=== PATIENT | male | born 1950 | race Caucasian/White ===

== ENCOUNTER → 2016-07-25 | Outpatient (CLI) | payer BC ==
[~2016-07-25] MED LIST: SODIUM CHLORIDE 0.9% 250 ML in EMPTY BAG 1 BAG IV PRN; SODIUM CHLORIDE 0.9% 500 ML in EMPTY BAG 1 BAG IV PRN
[2016-07-25 07:36] LABS: Basophils % (A) 1 %; CH 30.5; CHCM 32.7; Eosinophils # (A) 0.1 k/uL (0-0.7); Eosinophils % (A) 2 %; HCT 46.9 % (39.0-53.0); HDW 2.38; HGB 15.2 gm/dL (13.0-17.5); Luc # (Auto) 0.18; Luc % (Auto) 4; Lymphocytes # (A) 1.4 k/uL (1.0-4.8); Lymphocytes % (A) 27 %; MCH 30.4 pg (25.0-35.0); MCHC 32.5 g/dL (31.0-37.0); MCV 93.5 fL (80.0-100.0); Mean Platelet Volume 8.5; Monocytes # (A) 0.4 k/uL (0-1.0); Monocytes % (A) 8 %; Neutrophils % (A) 59 %; RBC 5.01 m/uL (4.30-5.90); RDW 13.2 % (11.5-15.5); WBC 5.1 k/uL (3.8-10.6); WBC (Perox) 4.99
[2016-07-25 07:44] VITALS: RESP 16; TEMP 98.3
[2016-07-25 08:19] VITALS: BP 116/72; PULSE 71
== END ==
LOC: PROCWHC3 07:18
PROVIDERS: ATTEND Family Medicine
DX: E83.119 Hemochromatosis, unspecified (principal)
CPT/HCPCS: 36415; 85025; 99195

== ENCOUNTER → 2016-10-24 | Outpatient (CLI) | payer BC ==
[2016-10-24 07:23] VITALS: RESP 20; TEMP 97.8
[2016-10-24 07:40] LABS: Basophils % (A) 0 %; CH 31.7; CHCM 34.4; Eosinophils # (A) 0.1 k/uL (0-0.7); Eosinophils % (A) 3 %; HCT 48.5 % (39.0-53.0); HGB 16.1 gm/dL (13.0-17.5); Luc # (Auto) 0.15; Luc % (Auto) 3; Lymphocytes # (A) 1.3 k/uL (1.0-4.8); Lymphocytes % (A) 27 %; MCH 30.6 pg (25.0-35.0); MCHC 33.1 g/dL (31.0-37.0); MCV 92.6 fL (80.0-100.0); Monocytes # (A) 0.5 k/uL (0-1.0); Monocytes % (A) 11 %; Neutrophils # (A) 2.7 k/uL (1.3-7.7); Neutrophils % (A) 56 %; RBC 5.24 m/uL (4.30-5.90); WBC 4.8 k/uL (3.8-10.6); WBC (Perox) 4.48
[2016-10-24 08:05] VITALS: BP 137/73; PULSE 61
== END | disposition home or self-care (01) ==
LOC: PROCWHC3 07:04
PROVIDERS: ATTEND Family Medicine
DX: E83.119 Hemochromatosis, unspecified (principal)
CPT/HCPCS: 36415; 85025; 99195

== ENCOUNTER → 2017-01-23 | Outpatient (CLI) | payer BC ==
[~2017-01-23] MED LIST changes: -SODIUM CHLORIDE 0.9% 250 ML in EMPTY BAG 1 BAG IV PRN
[2017-01-23 07:18] VITALS: PULSE 51; TEMP 97.5
[2017-01-23 07:22] LABS: Basophils % (A) 0 %; CH 31.9; CHCM 34.1; Eosinophils # (A) 0.1 k/uL (0-0.7); Eosinophils % (A) 2 %; HCT 48.3 % (39.0-53.0); HDW 2.37; HGB 16.1 gm/dL (13.0-17.5); Luc # (Auto) 0.14; Luc % (Auto) 3; Lymphocytes # (A) 1.7 k/uL (1.0-4.8); Lymphocytes % (A) 31 %; MCH 31.4 pg (25.0-35.0); MCHC 33.4 g/dL (31.0-37.0); MCV 94.1 fL (80.0-100.0); Mean Platelet Volume 7.9; Monocytes # (A) 0.6 k/uL (0-1.0); Monocytes % (A) 11 %; Neutrophils # (A) 2.9 k/uL (1.3-7.7); Neutrophils % (A) 54 %; RBC 5.14 m/uL (4.30-5.90); RDW 13.8 % (11.5-15.5); WBC 5.5 k/uL (3.8-10.6); WBC (Perox) 5.57
[2017-01-23 07:50] VITALS: BP 130/73; RESP 14
== END | disposition home or self-care (01) ==
LOC: PROCWHC3 07:02
PROVIDERS: ATTEND Family Medicine
DX: E83.119 Hemochromatosis, unspecified (principal)
CPT/HCPCS: 36415; 85025; 99195

== ENCOUNTER → 2017-04-23 | Outpatient (CLI) | payer BC ==
--- NOTE | 2017-04-23 09:51 | CTL ---
EXAMINATION TYPE: CT Low Dose Lung DATE OF EXAM ORDERED: 04/23/2017 HISTORY: Long-term tobacco use. Lung cancer screening CT DLP: [address] CTDI: 2.68 mGy Automated exposure control for dose reduction was used. SCREENING VISIT: Initial screening study COMPARISON: None TECHNIQUE: Low dose computed tomography scan was performed through the chest at 1 mm thick sections a nd reconstructed images in the coronal plane at [address] DIAGNOSTIC QUALITY: Satisfactory FINDINGS: LUNG NODULES: None. LUNGS: COPD: Severity: Mild to minimal Fibrosis: Severity: None Lymph nodes: No greater than 1 cm adenopathy is present. Other findings: No significant acute or chronic pulmonary process. BILATERAL PLEURAL SPACE: Effusion: None Calcification: None Thickening: None Pneumothorax: None HEART: Heart Size: Normal Coronary calcification: Severe but post CABG changes with mediastinal clips and sternal wires are pr esent. Pericardial effusion: None OTHER FINDINGS: Upper abdomen: Small size hiatal hernia is present. Bony thorax: Mild to moderate multilevel spurring in thoracic spine is present. Supraclavicular region: No suspicious finding is present. Other: Ascending aorta measures up to 4.1 cm in diameter on axial image 25. IMPRESSION: No suspicious nodules or masses identified. FOLLOW UP CT CHEST RECOMMENDATION: Annual low-dose lung screening CT CT LUNG RAD: 1-negative study Note is made of 4.1 cm aneurysmal change of ascending aorta. This may required annual CT surveillance . This could be used instead of low-dose lung screening CT.
== END | disposition home or self-care (01) ==
LOC: RADCTMAIN 08:18
PROVIDERS: ATTEND Family Medicine
DX: Z12.2 Encounter for screening for malignant neoplasm of respiratory organs (principal); Z87.891 Personal history of nicotine dependence

== ENCOUNTER → 2017-07-10 | Outpatient (CLI) | payer BC ==
[2017-07-10 07:25] VITALS: RESP 16; TEMP 97.7
[2017-07-10 07:35] LABS: Basophils % (A) 1 %; Eosinophils # (A) 0.1 k/uL (0-0.7); Eosinophils % (A) 2 %; HCT 46.4 % (39.0-53.0); HGB 15.2 gm/dL (13.0-17.5); Lymphocytes # (A) 1.2 k/uL (1.0-4.8); Lymphocytes % (A) 28 %; MCHC 32.9 g/dL (31.0-37.0); MCV 91.1 fL (80.0-100.0); Monocytes # (A) 0.4 k/uL (0-1.0); Monocytes % (A) 8 %; Neutrophils # (A) 2.6 k/uL (1.3-7.7); Neutrophils % (A) 58 %; Platelet Count 155 k/uL (150-450); RBC 5.09 m/uL (4.30-5.90); RDW 12.7 % (11.5-15.5); WBC 4.4 k/uL (3.8-10.6)
[2017-07-10 07:59] VITALS: BP 154/89; PULSE 66
== END | disposition home or self-care (01) ==
LOC: PROCWHC3 07:01
PROVIDERS: ATTEND Family Medicine
DX: E83.119 Hemochromatosis, unspecified (principal)
CPT/HCPCS: 36415; 85025; 99195

== ENCOUNTER → 2017-10-09 | Outpatient (CLI) | payer BC ==
[2017-10-09 08:32] VITALS: TEMP 98.3
[2017-10-09 08:48] LABS: Basophils % (A) 1 %; Eosinophils # (A) 0.1 k/uL (0-0.7); Eosinophils % (A) 2 %; HCT 45.5 % (39.0-53.0); HGB 15.3 gm/dL (13.0-17.5); Lymphocytes # (A) 1.1 k/uL (1.0-4.8); Lymphocytes % (A) 26 %; MCHC 33.6 g/dL (31.0-37.0); MCV 92.4 fL (80.0-100.0); Mean Platelet Volume 7.8; Monocytes # (A) 0.4 k/uL (0-1.0); Monocytes % (A) 9 %; Neutrophils # (A) 2.6 k/uL (1.3-7.7); Neutrophils % (A) 60 %; Platelet Count 147 k/uL (150-450); RBC 4.93 m/uL (4.30-5.90); RDW 13.2 % (11.5-15.5); WBC 4.2 k/uL (3.8-10.6)
[2017-10-09 12:22] VITALS: BP 143/75; PULSE 59; RESP 16
== END | disposition home or self-care (01) ==
LOC: PROCWHC3 08:23
PROVIDERS: ATTEND Family Medicine
DX: E83.119 Hemochromatosis, unspecified (principal)
CPT/HCPCS: 36415; 85025; 99195

== ENCOUNTER → 2018-01-08 | Outpatient (CLI) | payer BC ==
[2018-01-08 15:08] VITALS: RESP 16; TEMP 98
[2018-01-08 15:25] LABS: Basophils % (A) 0 %; Eosinophils # (A) 0.1 k/uL (0-0.7); Eosinophils % (A) 1 %; HCT 44.8 % (39.0-53.0); HGB 14.7 gm/dL (13.0-17.5); Lymphocytes # (A) 1.3 k/uL (1.0-4.8); Lymphocytes % (A) 28 %; MCH 30.6 pg (25.0-35.0); MCHC 32.9 g/dL (31.0-37.0); Mean Platelet Volume 8.2; Monocytes # (A) 0.3 k/uL (0-1.0); Monocytes % (A) 6 %; Neutrophils # (A) 3.1 k/uL (1.3-7.7); Neutrophils % (A) 63 %; Platelet Count 137 k/uL (150-450); RBC 4.81 m/uL (4.30-5.90); RDW 12.8 % (11.5-15.5); WBC 4.8 k/uL (3.8-10.6)
[2018-01-08 15:54] VITALS: BP 128/72; PULSE 57
== END | disposition home or self-care (01) ==
LOC: PROCWHC3 14:24
PROVIDERS: ATTEND Family Medicine
DX: E83.119 Hemochromatosis, unspecified (principal)
CPT/HCPCS: 36415; 85025; 99195

== ENCOUNTER → 2018-04-01 | Outpatient (CLI) | payer BC ==
--- NOTE | 2018-04-01 09:27 | US ---
EXAMINATION TYPE: US liver DATE OF EXAM: 04/01/2018 COMPARISON: US CLINICAL HISTORY: B18.2 Chronic Hepatitis C. Smoker; prior CABG 1995 EXAM MEASUREMENTS: Liver Length: 16.1 cm Gallbladder Wall: 0.1 cm CBD: 0.3 cm Right Kidney: 10.1 x 4.2 x 4.7 cm Pancreas: Obscured by bowel gas Liver: hyperechoic to right renal cortex suggests fatty liver Gallbladder: wnl Evidence for sonographic Renee's sign: no CBD: wnl Right Kidney: No hydronephrosis or masses seen AORTA: incidental findings of AAA distal aorta and size = 3.8cm A/P and 3.3cm Transverse. There is ex tent into the common iliac arteries that are enlarged bilaterally measuring 3.0 cm on the right and 2 .6 cm on the left. Irregular, hyperechoic intimal wall thickening is noted throughout aorta. IMPRESSION: 1. Abdominal aortic aneurysm measuring 3.8 x 3.3 cm with extent into the common iliac arteries. CT ab domen could further assess this finding. 2. Hyperechoic hepatic echotexture most commonly relates to underlying hepatic steatosis although cou ld relate to hepatocellular disease in this patient with known hepatitis C. No suspicious hepatic mas ses seen on today's examination.
== END | disposition home or self-care (01) ==
LOC: RADUSWWP 07:31
DX: I71.4 Abdominal aortic aneurysm, without rupture (principal); R93.2 Abnormal findings on diagnostic imaging of liver and biliary tract; B18.2 Chronic viral hepatitis C
CPT/HCPCS: 76705

== ENCOUNTER → 2018-04-09 | Outpatient (CLI) | payer BC ==
[~2018-04-09] MED LIST changes: +SODIUM CHLORIDE 0.9% 500 ML 500 ML in EMPTY BAG 1 BAG IV PRN; -SODIUM CHLORIDE 0.9% 500 ML in EMPTY BAG 1 BAG IV PRN
[2018-04-09 14:53] VITALS: RESP 16; TEMP 98.2
[2018-04-09 15:09] LABS: Basophils % (A) 0 %; Eosinophils # (A) 0.1 k/uL (0-0.7); Eosinophils % (A) 2 %; HCT 47.1 % (39.0-53.0); HGB 15.5 gm/dL (13.0-17.5); Lymphocytes # (A) 1.4 k/uL (1.0-4.8); Lymphocytes % (A) 26 %; MCH 30.8 pg (25.0-35.0); MCV 93.4 fL (80.0-100.0); Mean Platelet Volume 7.8; Monocytes # (A) 0.5 k/uL (0-1.0); Monocytes % (A) 9 %; Neutrophils # (A) 3.3 k/uL (1.3-7.7); Neutrophils % (A) 62 %; Platelet Count 144 k/uL (150-450); RBC 5.04 m/uL (4.30-5.90); RDW 13.2 % (11.5-15.5); WBC 5.3 k/uL (3.8-10.6)
[2018-04-09 16:43] VITALS: BP 144/83; PULSE 64
== END ==
LOC: PROCWHC3 13:55
PROVIDERS: ATTEND Family Medicine
DX: E83.119 Hemochromatosis, unspecified (principal)
CPT/HCPCS: 36415; 85025; 99195

== ENCOUNTER → 2018-04-09 | Outpatient (CLI) | payer BC ==
[2018-04-09 17:28] LABS: INR 1.1 (<1.2); Prothrombin Time 10.9 sec (9.0-12.0)
[2018-04-10 04:21] LABS: ALT 39 U/L (10-49); AST 32 U/L (14-35); Albumin/Globulin Ratio 1.91 (1.20-2.10); Alkaline Phosphatase 43 U/L (41-126); Bilirubin, Conjugated <0.20 mg/dL (0.20-0.40); Globulin 2.2 g/dL (2.1-3.7); Total Bilirubin 0.4 mg/dL (0.3-1.2); Total Protein 6.4 g/dL (6.2-8.2)
== END | disposition home or self-care (01) ==
LOC: LABWHC1 16:22
PROVIDERS: ATTEND Physician Assistant
DX: B18.2 Chronic viral hepatitis C (principal)
CPT/HCPCS: 36415; 80076; 85610; 87522

== ENCOUNTER → 2018-05-29 | Outpatient (CLI) | payer BC ==
[2018-05-29 18:08] LABS: Basophils % (A) 0 %; Eosinophils # (A) 0.1 k/uL (0-0.7); Eosinophils % (A) 2 %; HCT 44.4 % (39.0-53.0); Lymphocytes % (A) 35 %; MCH 31.8 pg (25.0-35.0); MCHC 33.8 g/dL (31.0-37.0); MCV 94.1 fL (80.0-100.0); Mean Platelet Volume 8.2; Monocytes # (A) 0.5 k/uL (0-1.0); Monocytes % (A) 9 %; Neutrophils # (A) 2.9 k/uL (1.3-7.7); Neutrophils % (A) 51 %; Platelet Count 160 k/uL (150-450); RBC 4.71 m/uL (4.30-5.90); RDW 13.4 % (11.5-15.5); WBC 5.7 k/uL (3.8-10.6)
[2018-05-29 23:07] LABS: ALT 18 U/L (10-49); AST 21 U/L (14-35); Albumin/Globulin Ratio 1.83 (1.20-2.10); Alkaline Phosphatase 38 U/L (41-126); Bilirubin, Conjugated <0.20 mg/dL (0.20-0.40); Globulin 2.4 g/dL (1.6-3.3); Total Bilirubin 0.4 mg/dL (0.3-1.2); Total Protein 6.8 g/dL (6.2-8.2)
[2018-05-31 14:58] LABS: Hepatits C Virus RNA DETECTED (Not detected); Hepatits C Virus RNA, Quant 17 IU/mL (<12); LOG HCV IU/mL 1.23 (<1.08)
== END | disposition home or self-care (01) ==
LOC: LABWHC1 17:22
PROVIDERS: ATTEND Physician Assistant
DX: B18.2 Chronic viral hepatitis C (principal)
CPT/HCPCS: 36415; 80076; 82105; 85025; 87522

== ENCOUNTER → 2018-06-17 | Outpatient (CLI) | payer BC ==
--- NOTE | 2018-06-18 09:36 | XR ---
Lumbar spine HISTORY: Low back pain 3 views of the lumbar spine No comparisons Lumbar vertebral bodies show preserved height. Bone mineralization is mildly reduced. There is nayla listhesis grade 1 L4-5, retrolisthesis grade 1 L3-4. Multilevel spondylosis is present. Mild loss of disc height present L3-4, L4-5. Sclerosis present in the posterior elements. Vascular calcifications are noted, the abdominal aorta is likely aneurysmal. IMPRESSION: Degenerative disc disease and facet arthropathy, possible osteopenia. Abdominal aortic an eurysm. A Yellow level critical message alert has been initiated for Luis Rodriguez MD via the [employer] Critical Results System on 06/18/2018 9:33 AM. This message alert has been sent to Luis Rodriguez MD via the preferences provided by the clinician for the receipt of Radiology Critical Findings. Message ID [id number].
== END | disposition home or self-care (01) ==
LOC: RADXRMAIN 15:49
PROVIDERS: ATTEND Family Medicine
DX: M51.36 Other intervertebral disc degeneration, lumbar region (principal); M46.96 Unspecified inflammatory spondylopathy, lumbar region
CPT/HCPCS: 72100

== ENCOUNTER → 2018-07-09 | Outpatient (CLI) | payer BC ==
[2018-07-09 14:39] VITALS: TEMP 97.8
[2018-07-09 14:53] LABS: Basophils % (A) 1 %; Eosinophils # (A) 0.1 k/uL (0-0.7); Eosinophils % (A) 2 %; HCT 47.1 % (39.0-53.0); HGB 15.3 gm/dL (13.0-17.5); Lymphocytes # (A) 1.7 k/uL (1.0-4.8); Lymphocytes % (A) 34 %; MCHC 32.5 g/dL (31.0-37.0); MCV 95.2 fL (80.0-100.0); Mean Platelet Volume 7.9; Monocytes # (A) 0.4 k/uL (0-1.0); Monocytes % (A) 8 %; Neutrophils # (A) 2.7 k/uL (1.3-7.7); Neutrophils % (A) 53 %; Platelet Count 149 k/uL (150-450); RBC 4.95 m/uL (4.30-5.90); RDW 12.9 % (11.5-15.5); WBC 5.1 k/uL (3.8-10.6)
[2018-07-09 15:10] VITALS: BP 143/79; PULSE 52; RESP 16
== END ==
LOC: PROCWHC3 13:53
PROVIDERS: ATTEND Family Medicine
DX: E83.110 Hereditary hemochromatosis (principal)
CPT/HCPCS: 36415; 85025; 99195

== ENCOUNTER → 2018-08-06 | Outpatient (CLI) | payer BC ==
[2018-08-06 17:55] LABS: Basophils % (A) 0 %; Eosinophils # (A) 0.2 k/uL (0-0.7); Eosinophils % (A) 2 %; HCT 46.7 % (39.0-53.0); HGB 14.9 gm/dL (13.0-17.5); Lymphocytes % (A) 33 %; MCH 29.9 pg (25.0-35.0); MCHC 31.9 g/dL (31.0-37.0); MCV 93.8 fL (80.0-100.0); Mean Platelet Volume 7.7; Monocytes # (A) 0.5 k/uL (0-1.0); Monocytes % (A) 8 %; Neutrophils # (A) 3.4 k/uL (1.3-7.7); Neutrophils % (A) 55 %; Platelet Count 172 k/uL (150-450); RBC 4.98 m/uL (4.30-5.90); RDW 13.2 % (11.5-15.5); WBC 6.2 k/uL (3.8-10.6)
[2018-08-07 01:35] LABS: ALT 23 U/L (10-49); AST 26 U/L (14-35); Albumin/Globulin Ratio 1.96 (1.60-3.17); Alkaline Phosphatase 41 U/L (41-126); Bilirubin, Conjugated <0.20 mg/dL (0.20-0.40); Globulin 2.3 g/dL (1.6-3.3); Total Bilirubin 0.3 mg/dL (0.2-1.2); Total Protein 6.8 g/dL (6.2-8.2)
[2018-08-08 15:41] LABS: Hepatits C Virus RNA DETECTED (Not detected); Hepatits C Virus RNA, Quant <12 IU/mL (<12); LOG HCV IU/mL <1.08 (<1.08)
== END | disposition home or self-care (01) ==
LOC: LABWHC1 16:30
PROVIDERS: ATTEND Physician Assistant
DX: B18.2 Chronic viral hepatitis C (principal)
CPT/HCPCS: 36415; 80076; 82105; 85025; 87522

== ENCOUNTER → 2018-10-09 | Outpatient (CLI) | payer BC ==
[2018-10-09 13:34] VITALS: RESP 16; TEMP 97.7
[2018-10-09 14:04] LABS: HCT 41.2 % (39.0-53.0); HGB 13.8 gm/dL (13.0-17.5); MCH 31.1 pg (25.0-35.0); MCHC 33.4 g/dL (31.0-37.0); Mean Platelet Volume 8.5; Platelet Count 133 k/uL (150-450); RBC 4.43 m/uL (4.30-5.90); WBC 5.5 k/uL (3.8-10.6)
[2018-10-09 14:30] VITALS: BP 127/75; PULSE 48
== END ==
LOC: PROCWHC3 13:18
PROVIDERS: ATTEND Family Medicine
DX: E83.110 Hereditary hemochromatosis (principal)
CPT/HCPCS: 36415; 85027; 99195

== ENCOUNTER → 2018-11-05 | Outpatient (CLI) | payer BC ==
[2018-11-05 15:46] LABS: Basophils % (A) 1 %; Eosinophils # (A) 0.1 k/uL (0-0.7); Eosinophils % (A) 2 %; HCT 40.2 % (39.0-53.0); HGB 12.9 gm/dL (13.0-17.5); Lymphocytes # (A) 1.8 k/uL (1.0-4.8); Lymphocytes % (A) 33 %; MCH 31.2 pg (25.0-35.0); MCHC 32.2 g/dL (31.0-37.0); MCV 96.9 fL (80.0-100.0); Mean Platelet Volume 8.3; Monocytes # (A) 0.5 k/uL (0-1.0); Monocytes % (A) 9 %; Neutrophils # (A) 2.8 k/uL (1.3-7.7); Neutrophils % (A) 53 %; Platelet Count 151 k/uL (150-450); RBC 4.15 m/uL (4.30-5.90); RDW 13.7 % (11.5-15.5); WBC 5.3 k/uL (3.8-10.6)
[2018-11-06 00:14] LABS: ALT 12 U/L (10-49); AST 16 U/L (14-35); Alkaline Phosphatase 38 U/L (41-126); Bilirubin, Conjugated <0.20 mg/dL (0.20-0.40); Total Bilirubin 0.4 mg/dL (0.2-1.2); Total Protein 6.4 g/dL (6.2-8.2)
[2018-11-06 14:54] LABS: LOG HCV IU/mL <1.08 (<1.08)
== END | disposition home or self-care (01) ==
LOC: LABWHC1 15:16
PROVIDERS: ATTEND Physician Assistant
DX: B18.2 Chronic viral hepatitis C (principal)
CPT/HCPCS: 36415; 80076; 85025; 87522

== ENCOUNTER → 2019-01-14 | Outpatient (CLI) | payer BC, MEDICARE ==
[2019-01-14 08:19] VITALS: RESP 16; TEMP 97.5
[2019-01-14 08:34] LABS: Basophils % (A) 1 %; Eosinophils # (A) 0.2 k/uL (0-0.7); Eosinophils % (A) 3 %; HCT 47.8 % (39.0-53.0); HGB 16.1 gm/dL (13.0-17.5); Lymphocytes # (A) 1.5 k/uL (1.0-4.8); Lymphocytes % (A) 29 %; MCH 31.3 pg (25.0-35.0); MCHC 33.6 g/dL (31.0-37.0); MCV 93.1 fL (80.0-100.0); Mean Platelet Volume 7.7; Monocytes # (A) 0.4 k/uL (0-1.0); Monocytes % (A) 8 %; Neutrophils # (A) 2.9 k/uL (1.3-7.7); Neutrophils % (A) 57 %; Platelet Count 162 k/uL (150-450); RBC 5.13 m/uL (4.30-5.90); RDW 14.3 % (11.5-15.5); WBC 5.1 k/uL (3.8-10.6)
[2019-01-14 09:00] VITALS: BP 135/78; PULSE 55
== END ==
LOC: PROCWHC3 07:48 → EDSTATUS 08:15
PROVIDERS: ATTEND Family Medicine
DX: E83.10 Disorder of iron metabolism, unspecified (principal); E83.119 Hemochromatosis, unspecified
CPT/HCPCS: 36415; 85025; 99195

== ENCOUNTER → 2019-04-15 | Outpatient (CLI) | payer BC, MEDICARE ==
[2019-04-15 08:45] VITALS: RESP 16; TEMP 97.7
[2019-04-15 08:45] LABS: Basophils % (A) 0 %; Eosinophils # (A) 0.2 k/uL (0-0.7); Eosinophils % (A) 2 %; HCT 47.2 % (39.0-53.0); HGB 15.5 gm/dL (13.0-17.5); Lymphocytes # (A) 1.4 k/uL (1.0-4.8); Lymphocytes % (A) 22 %; MCH 30.5 pg (25.0-35.0); MCHC 32.8 g/dL (31.0-37.0); Mean Platelet Volume 7.3; Monocytes # (A) 0.7 k/uL (0-1.0); Monocytes % (A) 10 %; Neutrophils # (A) 4.1 k/uL (1.3-7.7); Neutrophils % (A) 63 %; Platelet Count 182 k/uL (150-450); RBC 5.07 m/uL (4.30-5.90); RDW 13.4 % (11.5-15.5); WBC 6.5 k/uL (3.8-10.6)
[2019-04-15 09:20] VITALS: BP 112/71; PULSE 59
== END ==
LOC: PROCWHC3 07:55
PROVIDERS: ATTEND Family Medicine
DX: E83.110 Hereditary hemochromatosis (principal)
CPT/HCPCS: 36415; 85025; 99195

== ENCOUNTER → 2019-04-23 | Outpatient (CLI) | payer MEDICARE ==
[2019-04-23 13:36] LABS: Basophils % (A) 1 %; Eosinophils # (A) 0.2 k/uL (0-0.7); Eosinophils % (A) 4 %; HGB 15.2 gm/dL (13.0-17.5); Lymphocytes # (A) 1.6 k/uL (1.0-4.8); Lymphocytes % (A) 26 %; MCH 31.5 pg (25.0-35.0); MCV 95.5 fL (80.0-100.0); Mean Platelet Volume 8.1; Monocytes # (A) 0.5 k/uL (0-1.0); Monocytes % (A) 8 %; Neutrophils # (A) 3.8 k/uL (1.3-7.7); Neutrophils % (A) 60 %; Platelet Count 233 k/uL (150-450); RBC 4.82 m/uL (4.30-5.90); RDW 13.3 % (11.5-15.5); WBC 6.4 k/uL (3.8-10.6)
[2019-04-23 19:01] LABS: ALT 23 U/L (10-49); AST 20 U/L (14-35); Albumin/Globulin Ratio 1.96 (1.60-3.17); Alkaline Phosphatase 51 U/L (41-126); Bilirubin, Conjugated <0.20 mg/dL (0.20-0.40); Globulin 2.3 g/dL (1.6-3.3); Total Bilirubin 0.4 mg/dL (0.2-1.2); Total Protein 6.8 g/dL (6.2-8.2)
== END | disposition home or self-care (01) ==
LOC: LABWHC1 12:50
PROVIDERS: ATTEND Physician Assistant
DX: B18.2 Chronic viral hepatitis C (principal)
CPT/HCPCS: 36415; 80076; 85025; 87522

== ENCOUNTER → 2019-07-22 | Outpatient (CLI) | payer MEDICARE ==
[2019-07-22 09:27] VITALS: RESP 16; TEMP 97.6
[2019-07-22 09:56] LABS: Basophils % (A) 0 %; Eosinophils # (A) 0.3 k/uL (0-0.7); Eosinophils % (A) 5 %; HCT 48.3 % (39.0-53.0); HGB 16.1 gm/dL (13.0-17.5); Lymphocytes # (A) 1.4 k/uL (1.0-4.8); Lymphocytes % (A) 20 %; MCH 30.9 pg (25.0-35.0); MCHC 33.3 g/dL (31.0-37.0); MCV 92.7 fL (80.0-100.0); Mean Platelet Volume 8.2; Monocytes # (A) 0.5 k/uL (0-1.0); Monocytes % (A) 7 %; Neutrophils # (A) 4.8 k/uL (1.3-7.7); Neutrophils % (A) 66 %; Platelet Count 207 k/uL (150-450); RBC 5.21 m/uL (4.30-5.90); RDW 12.5 % (11.5-15.5); WBC 7.2 k/uL (3.8-10.6)
[2019-07-22 10:27] VITALS: BP 118/69; PULSE 79
== END | disposition home or self-care (01) ==
LOC: PROCWHC3 09:14
PROVIDERS: ATTEND Family Medicine
DX: E83.119 Hemochromatosis, unspecified (principal); E83.110 Hereditary hemochromatosis
CPT/HCPCS: 36415; 85025; 99195

== ENCOUNTER → 2019-09-30 | Outpatient (CLI) | payer MEDICARE ==
[2019-09-30 09:08] LABS: INR 1.1 (<1.2)
[2019-09-30 09:09] LABS: Prothrombin Time 11.2 sec (9.0-12.0)
[2019-09-30 09:18] LABS: Basophils % (A) 0 %; Eosinophils # (A) 0.1 k/uL (0-0.7); Eosinophils % (A) 2 %; HCT 46.3 % (39.0-53.0); HGB 15.7 gm/dL (13.0-17.5); Lymphocytes # (A) 1.4 k/uL (1.0-4.8); Lymphocytes % (A) 25 %; MCH 32.5 pg (25.0-35.0); MCHC 33.8 g/dL (31.0-37.0); MCV 96.2 fL (80.0-100.0); Mean Platelet Volume 8.5; Monocytes # (A) 0.5 k/uL (0-1.0); Monocytes % (A) 9 %; Neutrophils # (A) 3.4 k/uL (1.3-7.7); Neutrophils % (A) 61 %; Platelet Count 175 k/uL (150-450); RBC 4.81 m/uL (4.30-5.90); WBC 5.6 k/uL (3.8-10.6)
[2019-09-30 15:30] LABS: ALT 20 U/L (10-49); AST 23 U/L (14-35); Albumin/Globulin Ratio 1.86 (1.60-3.17); Alkaline Phosphatase 40 U/L (41-126); Bilirubin, Conjugated <0.20 mg/dL (0.20-0.40); Globulin 2.2 g/dL (1.6-3.3); Total Bilirubin 0.3 mg/dL (0.2-1.2); Total Protein 6.3 g/dL (6.2-8.2)
== END | disposition home or self-care (01) ==
LOC: LABWHC1 08:23
PROVIDERS: ATTEND Physician Assistant
DX: B18.2 Chronic viral hepatitis C (principal)
CPT/HCPCS: 36415; 80076; 85025; 85610; 87522

== ENCOUNTER → 2020-04-19 | Outpatient (CLI) | payer MEDICARE ==
[~2020-04-19] MED LIST changes: +REGADENOSON 0.4 MG/5 ML SYRINGE IV ONE; -SODIUM CHLORIDE 0.9% 500 ML 500 ML in EMPTY BAG 1 BAG IV PRN
--- NOTE | 2020-04-19 08:14 | CT ---
EXAMINATION TYPE: CT brain wo con DATE OF EXAM: 04/19/2020 HISTORY: Dizziness and double vision. CT DLP: 1162 mGycm. Automated Exposure Control for Dose Reduction was Utilized. TECHNIQUE: CT scan of the head is performed without contrast. COMPARISON: None. FINDINGS: There is no acute intracranial hemorrhage or midline shift identified. There is diffuse v entricular and sulcal prominence consistent with diffuse age-related cerebral atrophy. There is low- attenuation in the periventricular white matter consistent with chronic small vessel ischemic change. Suspect old infarct or focal encephalomalacia medial inferior left cerebellum, correlate clinically. Mild to minimal mucosal thickening throughout the bilateral maxillary sinuses. Mild mucosal thickeni ng with few scattered small mucous retention cysts and/or polyps throughout the ethmoid sinuses bilat erally. [id number] mucosal thickening in the left frontal sinus. Slightly larger mucous retenti on cyst or polyp in the anterior right sphenoid sinus axial image 9. Globes are intact bilaterally. IMPRESSION: No acute intracranial hemorrhage or midline shift. There is mild to moderate diffuse ag e-related cerebral atrophy and chronic small vessel ischemic change noted. 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 Correlate clinically. Correlation with old outside CT and/or MRI may be b eneficial.
--- NOTE | 2020-04-19 10:05 | US ---
EXAMINATION TYPE: US carotid duplex BILAT DATE OF EXAM: 04/19/2020 COMPARISON: NONE CLINICAL HISTORY: TIA G45.9, R42 Dizziness. EXAM MEASUREMENTS: RIGHT: Peak Systolic Velocity (PSV) cm/sec ----- Right CCA: 77.8 ----- Right ICA: 98.0 ----- Right ECA: 85.4 ICA/CCA ratio: 1.3 RIGHT: End Diastole cm/sec ----- Right CCA: 17.2 ----- Right ICA: 26.0 ----- Right ECA: 8.3 LEFT: Peak Systolic Velocity (PSV) cm/sec ----- Left CCA: 73.7 ----- Left ICA: 107.0 ----- Left ECA: 104.4 ICA/CCA ratio: 1.5 LEFT: End Diastole cm/sec ----- Left CCA: 22.3 ----- Left ICA: 37.1 ----- Left ECA: 13.6 VERTEBRALS (direction of flow): Right Vertebral: Antegrade Left Vertebral: Antegrade Rhythm: Normal Moderate amount of plaque visualized bilateral bulbs. No elevated velocities. No significant stenosis IMPRESSION: 1. Moderate amount of plaque with no significant hemodynamic stenosis bilaterally. Criteria for Assigning % of Stenosis / Diameter reduction (Estimation based on the indirect measurements of the internal carotid artery velocities (ICA PSV). 1. Normal (no stenosis)=ICA PSV < 125 cm/s: ratio < 2.0: ICA EDV<40 cm/s. 2. Less than 50% stenosis=ICA PSV < 125 cm/s: ratio < 2.0: ICA EDV<40 cm/s. 3. 50 to 69% stenosis=ICA PSV of 125 to 230 cm/s: ration 2.0 ? 4.0: ICA EDV 40-100 cm/s. 4. Greater than 70% stenosis to near occlusion= ICA PSV > 230 cm/s: ratio > 4.0: ICA EDV > 100 cm/s. 5. Near occlusion= ICA PSV velocities may be low or undetectable: variable ratio and ICA EDV. 6. Total occlusion=unable to detect flow.
--- NOTE | 2020-04-19 11:15 | NM ---
EXAMINATION TYPE: NM stress lexiscan cardiolite DATE OF EXAM: 04/19/2020 COMPARISON: NONE HISTORY: Chest pain TECHNIQUE: After the intravenous administration of 10.0 mCi Tc 99m Sestamibi - Cardiolite resting SP ECT images acquired 45 minutes post injection. The patient received 0.4mg Lexiscan, 26.4 mCi Tc 99m Sestamibi - Stress images obtained [address] injection FINDINGS: Review of stress and rest SPECT images demonstrates no distinct perfusion abnormality. Gated analysi s shows normal wall motion with an estimated left ventricular ejection fraction of 57 %. Small fixed defect involving the inferior septum could be artifactual. Correlate clinically. IMPRESSION: No scintigraphic evidence for reversible ischemia.
--- NOTE | 2020-04-19 12:51 | P.STRESS ---
- Stress Test Note Stress Test Results/Findings: Exam Performed: NM stress lexiscan cardiolite Exam Date: 04/19/20 Reason for Exam: DIZZINESS Height: 5 ft 6 in Weight: 90.718 kg Protocol: LEXISCAN CARDIOLITE Stage: N/A Duration of Exercise: N/A Resting Heart Rate: 41 Resting Blood Pressure: 141/61 Maximum Achieved Heart Rate: 87 Maximum Achieved Blood Pressure: 141/61 85% PMHR: 130 100% PMHR: 150 METS: N/A Technologist Comment: Stress Test Results/Findings: At baseline EKG showed sinus bradycardia with blocked PACs, normal axis, no sign ificant ST or T-wave abnormalities. Patient recieved IV infusion of Lexiscan 0.4mg and at peak infusion EKG showed no significant change from baseline. Conclusions: 1. Normal EKG response to Lexiscan infusion 2. Nuclear imaging to be reported separately.
--- NOTE | 2020-04-19 13:40 | EST ---
Stress Test Results/Findings: Exam Performed: NM stress lexiscan cardiolite Exam Date: 04/19/20 Reason for Exam: DIZZINESS Height: 5 ft 6 in Weight: 90.718 kg Protocol: LEXISCAN CARDIOLITE Stage: N/A Duration of Exercise: N/A Resting Heart Rate: 41 Resting Blood Pressure: 141/61 Maximum Achieved Heart Rate: 87 Maximum Achieved Blood Pressure: 141/61 85% PMHR: 130 100% PMHR: 150 METS: N/A Technologist Comment: Stress Test Results/Findings: At baseline EKG showed sinus bradycardia with blocked PACs, normal axis, no significant ST or T-wave abnormalities. Patient recieved IV infusion of Lexiscan 0.4mg and at peak infusion EKG showed no significant change from baseline. Conclusions: 1. Normal EKG response to Lexiscan infusion 2. Nuclear imaging to be reported separately. MTDD
== END | disposition home or self-care (01) ==
LOC: RADCTMAIN 06:37
PROVIDERS: ATTEND Family Medicine
DX: I67.82 Cerebral ischemia (principal); G31.1 Senile degeneration of brain, not elsewhere classified; I65.23 Occlusion and stenosis of bilateral carotid arteries; R42 Dizziness and giddiness; R07.9 Chest pain, unspecified
CPT/HCPCS: 93017; 93880; 70450; 78452; A9500; J2785

== ENCOUNTER → 2020-08-16 | Outpatient (CLI) | payer MEDICARE ==
[2020-08-16 18:43] LABS: INR 1.01 (0.90-1.11)
[2020-08-16 19:21] LABS: Basophils # (A) 0.03 X 10*3/uL (0.00-0.10); Basophils % (A) 0.5 %; Eosinophils # (A) 0.08 X 10*3/uL (0.04-0.35); Eosinophils % (A) 1.3 %; HCT 48.1 % (39.6-50.0); HGB 15.6 g/dL (13.0-17.0); Lymphocytes # (A) 1.87 X 10*3/uL (0.90-5.00); Lymphocytes % (A) 29.8 %; MCH 31.1 pg (27.0-32.0); MCHC 32.4 g/dL (32.0-37.0); Mean Platelet Volume 11.5 fL (9.5-12.2); Monocytes # (A) 0.71 X 10*3/uL (0.20-1.00); Monocytes % (A) 11.3 %; Neutrophils # (A) 3.56 X 10*3/uL (1.80-7.70); Neutrophils % (A) 56.6 %; Platelet Count 176 X 10*3/uL (140-440); RBC 5.01 X 10*6/uL (4.40-5.60); RDW 12.7 % (11.5-14.5); WBC 6.28 X 10*3/uL (4.50-10.00)
[2020-08-16 19:27] LABS: Albumin 4.5 g/dL (3.80-4.90); Albumin/Globulin Ratio 1.96 (1.60-3.17); Bilirubin, Conjugated 0.3 mg/dL (0.20-0.40); Bilirubin,Unconjugated 0.4 mg/dL; Globulin 2.3 g/dL (1.6-3.3); Total Bilirubin 0.7 mg/dL (0.3-1.2); Total Protein 6.8 g/dL (6.2-8.2)
== END | disposition home or self-care (01) ==
LOC: LABWHC1 12:28
PROVIDERS: ATTEND Physician Assistant
DX: B18.2 Chronic viral hepatitis C (principal)
CPT/HCPCS: 36415; 80076; 85025; 85610; 87522

== ENCOUNTER → 2021-12-07 | Outpatient (CLI) | payer MEDICARE ==
--- NOTE | 2021-12-07 18:46 | US ---
EXAMINATION TYPE: US venous doppler duplex LE RT DATE OF EXAM: 12/07/2021 1:50 PM COMPARISON: NONE CLINICAL HISTORY: 70-year-old male R22.41 right leg swelling. SIDE PERFORMED: Right TECHNIQUE: The lower extremity deep venous system is examined utilizing real time linear array sonog jeffry with graded compression, doppler sonography and color-flow sonography. FINDINGS: VESSELS IMAGED: Common Femoral Vein Deep Femoral Vein Greater Saphenous Vein * Femoral Vein Popliteal Vein Small Saphenous Vein * Proximal Calf Veins (* superficial vessels) Right Leg: Appears negative for DVT IMPRESSION: No evidence for DVT within the right lower extremity imaged from the groin to the upper calf.
== END | disposition home or self-care (01) ==
LOC: RADUSWWP 12:59
PROVIDERS: ATTEND Family Medicine
DX: R22.41 Localized swelling, mass and lump, right lower limb (principal)

== ENCOUNTER → 2021-12-14 | Outpatient (CLI) | payer MEDICARE ==
--- NOTE | 2021-12-14 19:55 | CTL ---
EXAMINATION TYPE: CT Low Dose Lung DATE OF EXAM ORDERED: 12/14/2021 HISTORY: Lung cancer screening CT DLP: 125.[address] CTDI: 3.20 mGy Automated exposure control for dose reduction was used. SCREENING VISIT: Follow-up scan COMPARISON: 04/23/2017 TECHNIQUE: Low dose computed tomography scan was performed through the chest at 1 mm thick sections a nd reconstructed images in multiple planes at 1 mm and [address] DIAGNOSTIC QUALITY: Satisfactory FINDINGS: LUNG NODULES: Masslike consolidation within the right lung predominantly involving the lower aspect of the right up per lobe and the superior aspect of the right lower lobe. This area measures roughly 6.3 x 10.2 x 4.4 cm. LUNGS: COPD: Severity: None Fibrosis: Severity: None Lymph nodes: None Other findings: None RIGHT PLEURAL SPACE: Effusion: None Calcification: None Thickening: None Pneumothorax: None LEFT PLEURAL SPACE: Effusion: None Calcification: None Thickening: None Pneumothorax: None HEART: Heart Size: Normal Coronary Calcification: Moderate Pericardial Effusion: None OTHER FINDINGS: Upper abdomen: None Bony thorax: Sternotomy wires are present. Multiple levels fixation changes are seen throughout the s pine. Supraclavicular region: None Other: Atherosclerosis of the arterial vasculature. Partially visualized fat filled ventral hernia in the upper abdomen. Bilateral adrenal lipid rich adrenal adenomas. Ascending thoracic aorta fusiform aneurysmal dilation with smooth tapering measuring up to 4.5 cm, previously 4.3 cm. IMPRESSION: 1. New mass like consolidation in the inferior anterior aspect of the right upper lobe and involving the right middle lobe superior aspect. No definitive evidence of adenopathy seen throughout the thor ax findings may represent an malignancy with underlying airspace consolidation not entirely excluded. Comparisons with more recent priors in 2017 may be of benefit at outside institutions. 2. Clinical correlation and further evaluation is recommended. Consider short-term follow-up and/or PET/CT. 3. Moderate coronary artery atherosclerosis. 4. Ascending thoracic aorta dilation up to 4.5 cm mildly increased from 2017. CT LUNG RAD AND CT CHEST RECOMMENDATION: Lung-Rad 4B or 4X Very Suspicious: Follow-up Chest CT with o r without contrast or PET/CT and/or tissue sampling. PET/CT may be used when there is a > 8 mm solid component. S Modifier (other clinically significant findings): S, moderate coronary artery atherosclerosis.
== END | disposition home or self-care (01) ==
LOC: RADCTMAIN 18:54
PROVIDERS: ATTEND Family Medicine
DX: Z12.2 Encounter for screening for malignant neoplasm of respiratory organs (principal); I25.10 Atherosclerotic heart disease of native coronary artery without angina pectoris; Z87.891 Personal history of nicotine dependence
CPT/HCPCS: 71271